=== PATIENT | male | born 1980 | race Caucasian/White ===

== ENCOUNTER 2016-06-23 16:58 | Emergency (ER) | payer OTHER ==
[2016-06-23 17:08] VITALS: BP 151/93
[2016-06-23] MEDS ORDERED: IBUPROFEN 800 MG TABLET PO ONE (17:12)
--- NOTE | 2016-06-23 17:12 | ER Document Report ---
ED Medical Screen (RME) - General Chief Complaint: Ankle Pain Stated Complaint: LEFT ANKLE AND KNEE PAIN Time seen by provider: 17:09 Mode of Arrival: Wheelchair Information source: Patient Notes: 36-year-old male getting out of his liner at 4:30 today. Twisted his ankle and left knee and fell onto his whole leg. He is complaining of lateral left knee pain ankle pain and foot pain. hurts to bear weight on it TRAVEL OUTSIDE OF THE [place] IN LAST 30 DAYS: No - Related Data Allergies/Adverse Reactions: Penicillins Allergy (Verified 05/23/16 13:41) Past Medical History Past Surgical History: Reports: Hx Oral Surgery - wisdom, Hx Orthopedic Surgery - both knee, Hx Tonsillectomy Physical Exam - Vital signs Vitals: Temp Pulse Resp BP Pulse Ox 98.1 F 89 16 151/93 H 92 06/23/16 17:06 06/23/16 17:06 06/23/16 17:06 06/23/16 17:06 06/23/16 17:06 Course - Vital Signs Vital signs: Temp Pulse Resp BP Pulse Ox 98.1 F 89 16 151/93 H 92 06/23/16 17:06 06/23/16 17:06 06/23/16 17:06 06/23/16 17:06 06/23/16 17:06
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
== END 2016-06-23 19:06 | disposition home or self-care (01) ==
LOC: ER 16:58
DX: S93.402A Sprain of unspecified ligament of left ankle, initial encounter (principal); M25.562 Pain in left knee; M79.672 Pain in left foot; W07.XXXA Fall from chair, initial encounter; Y92.009 Unspecified place in unspecified non-institutional (private) residence as the place of occurrence of the external cause; Z88.0 Allergy status to penicillin
CPT/HCPCS: 99283; 73610; 73630; 73562; L1902

== ENCOUNTER 2017-09-29 21:31 | Emergency (ER) | payer MEDICAID, OTHER ==
[2017-09-29 22:44] LABS: APPEARANCE,URINE CLOUDY; BILIRUBIN,URINE NEGATIVE (NEGATIVE); COLOR,URINE YELLOW; GLUCOSE, URINE NEGATIVE (NEGATIVE); KETONES,URINE NEGATIVE (NEGATIVE); LEUKOCYTE ESTERASE,URINE LARGE (NEGATIVE); NITRITE,URINE NEGATIVE (NEGATIVE); PROTEIN,URINE 100 mg/dL (NEGATIVE); URINE SPECIFIC GRAVITY 1.016
[2017-09-29] MEDS ORDERED: CEFTRIAXONE INJ 1000 MG VIAL IV ONE (23:21)
[2017-09-29] MEDS ORDERED: KETOROLAC TROMETHAMINE INJ/PF 30 MG/1 ML SDV IV ONE (23:21)
[2017-09-29] MEDS ORDERED: NORMAL SALINE 1000 ML 1,000 ML IV ONE (23:21)
[2017-09-29] MEDS ORDERED: ONDANSETRON HCL INJ/PF 4 MG/2 ML SDV IV ONE (23:21)
[2017-09-30 00:44] LABS: ABSOLUTE BASOPHILS # (AUTO) 0.1 10^3/uL (0.0-0.2); ABSOLUTE EOSINOPHILS # (AUTO) 0.1 10^3/uL (0.0-0.6); ABSOLUTE LYMPHOCYTES (AUTO) 1.6 10^3/uL (0.5-4.7); ABSOLUTE MONOCYTES (AUTO) 1.2 10^3/uL (0.1-1.4); ABSOLUTE NEUT (AUTO) 6.4 10^3/uL (1.7-8.2); BASOPHILS % (AUTO) 0.6 % (0-2); EOSINOPHILS % (AUTO) 0.9 % (0-6); HEMATOCRIT 41.3 % (37.9-51.0); HEMOGLOBIN 14.1 g/dL (13.5-17.0); LYMPHOCYTES % (AUTO) 16.8 % (13-45); MEAN CORPUSCULAR HEMOGLOBIN 27.7 pg (27.0-33.4); MEAN CORPUSCULAR HGB CONC 34.1 g/dL (32.0-36.0); MEAN CORPUSCULAR VOLUME 81 fl (80-97); MONOCYTES % (AUTO) 12.5 % (3-13); PLATELET COUNT 227 10^3/uL (150-450); RED BLOOD COUNT 5.08 10^6/uL (4.35-5.55); RED CELL DISTRIBUTION WIDTH 13.5 % (11.5-14.0); SEGMENTED NEUTROPHILS % (AUTO) 69.2 % (42-78); TOTAL CELLS COUNTED % (AUTO) 100 %; WHITE BLOOD COUNT 9.3 10^3/uL (4.0-10.5)
[2017-09-30 01:01] LABS: ALANINE AMINOTRANSFERASE 57 U/L (21-72); ALBUMIN 4.3 g/dL (3.5-5.0); ALKALINE PHOSPHATASE 105 U/L (38-126); ANION GAP 13 (5-19); ASPARTATE AMINO TRANSFERASE 27 U/L (17-59); BILIRUBIN,DIRECT 0.4 mg/dL (0.0-0.4); BILIRUBIN,TOTAL 0.4 mg/dL (0.2-1.3); BLOOD UREA NITROGEN 14 mg/dL (7-20); CALCIUM 9.2 mg/dL (8.4-10.2); CARBON DIOXIDE 26 mmol/L (22-30); CHLORIDE 104 mmol/L (98-107); GLUCOSE 149 mg/dL (75-110); POTASSIUM 4.1 mmol/L (3.6-5.0); SODIUM 143.4 mmol/L (137-145); TOTAL PROTEIN 7.4 g/dL (6.3-8.2)
[2017-09-30] MEDS ORDERED: ACETAMINOPHEN 325 MG TABLET PO ONE (01:04)
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
--- NOTE | 2017-09-30 01:23 | RADIOLOGY REPORT (SQ) ---
EXAM DESCRIPTION: CT ABDOMEN AND PELVIS WITHOUT CONTRAST CLINICAL HISTORY: Right and left lower abdominal pain. COMPARISON: None Available. TECHNIQUE: CT of the abdomen and pelvis without IV contrast. Evaluation of the solid organs and vasculature is suboptimal due to lack of IV contrast. DLP: 1546.61 mGy-cm FINDINGS: Lung Bases: The visualized lung bases are clear. Bones: No destructive bone lesions identified. Bilateral L5/S1 pars defects. Abdomen: Liver: The liver has normal size and decreased density. Gallbladder: No calcified gallstones. Spleen, Pancreas, and Adrenal Glands: The spleen, pancreas, and adrenal glands are unremarkable. Kidneys: No obstructing ureteral calculi. The kidneys have normal size without evidence of hydronephrosis. Vasculature: The aorta and IVC have normal caliber and position. Stomach: The stomach and duodenum have normal course. Other: No free intraperitoneal air. No free fluid or lymphadenopathy. Pelvis: Bladder: Urinary bladder is decompressed with mild adjacent inflammatory change. Bowel: No dilated loops of large or small bowel. Appendix: No evidence of appendicitis. The appendix is not definitely identified. Pelvis: Prostate is not enlarged. IMPRESSION: 1. Mild inflammatory change and wall thickening of the urinary bladder. This could be seen with cystitis. Other etiology not excluded. 2. No obstructing ureteral calculi identified. 3. Hepatic steatosis. This exam was performed according to our departmental dose-optimization program, which includes automated exposure control, adjustment of the mA and/or kV according to patient size and/or use of iterative reconstruction technique.
[2017-09-30] MEDS ORDERED: ONDANSETRON ODT 4 MG TAB (6 TAB/ER DISP) PO PRN (01:54)
[2017-09-30 02:32] VITALS: BP 126/76
== END 2017-09-30 02:31 | disposition home or self-care (01) ==
LOC: ER 21:31
DX: N12 Tubulo-interstitial nephritis, not specified as acute or chronic (principal); R50.9 Fever, unspecified; R11.2 Nausea with vomiting, unspecified; R10.9 Unspecified abdominal pain; R30.0 Dysuria; R10.30 Lower abdominal pain, unspecified; Z87.891 Personal history of nicotine dependence
CPT/HCPCS: 99284; 96361; 96374; 96375; 36415; 87086; 85025; 87088; 80053; 81001; 87186; 76380; J1885; J0696; J2405; J7030

== ENCOUNTER 2018-01-08 16:33 | Emergency (ER) | payer OTHER ==
[2018-01-08] MEDS ORDERED: NORMAL SALINE 1000 ML 1,000 ML IV PRN (17:06)
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
--- NOTE | 2018-01-08 17:32 | RADIOLOGY REPORT (SQ) ---
EXAM DESCRIPTION: ACUTE ABDOMEN SERIES COMPLETED DATE/TIME: 01/08/2018 5:23 pm REASON FOR STUDY: Acute abdominal pain COMPARISON: 09/30/2017 NUMBER OF VIEWS: Three views. TECHNIQUE: Frontal chest, supine abdomen and upright/decubitus abdomen radiographic images acquired. LIMITATIONS: None. FINDINGS: CHEST: No acute finding. Similar bibasilar subpleural scarring. FREE AIR: None. No abnormal gas collections. BOWEL GAS PATTERN: Nonobstructive pattern. No dilated loops or air fluid levels. CALCIFICATIONS: No suspicious calcifications. HARDWARE: None in the abdomen. SOFT TISSUES: No gross mass or suggestion of organomegaly. BONES: No acute fracture. No worrisome bone lesions. OTHER: No other significant finding. IMPRESSION: NO RADIOGRAPHIC EVIDENCE FOR ACUTE ABDOMINAL DISEASE. TECHNICAL DOCUMENTATION: JOB ID: [id number] [place]-72 2010 [employer]- All Rights Reserved Reading location - IP/workstation name: [email or web address]
[2018-01-08 18:25] LABS: ABSOLUTE EOSINOPHILS # (AUTO) 0.2 10^3/uL (0.0-0.6); ABSOLUTE LYMPHOCYTES (AUTO) 2.4 10^3/uL (0.5-4.7); ABSOLUTE MONOCYTES (AUTO) 0.7 10^3/uL (0.1-1.4); ABSOLUTE NEUT (AUTO) 4.4 10^3/uL (1.7-8.2); BASOPHILS % (AUTO) 0.6 % (0-2); EOSINOPHILS % (AUTO) 2.4 % (0-6); HEMATOCRIT 41.3 % (37.9-51.0); HEMOGLOBIN 14.5 g/dL (13.5-17.0); LYMPHOCYTES % (AUTO) 30.6 % (13-45); MEAN CORPUSCULAR HEMOGLOBIN 28.3 pg (27.0-33.4); MEAN CORPUSCULAR HGB CONC 35.2 g/dL (32.0-36.0); MEAN CORPUSCULAR VOLUME 80 fl (80-97); MONOCYTES % (AUTO) 9.4 % (3-13); PLATELET COUNT 271 10^3/uL (150-450); RED BLOOD COUNT 5.13 10^6/uL (4.35-5.55); TOTAL CELLS COUNTED % (AUTO) 100 %; WHITE BLOOD COUNT 7.7 10^3/uL (4.0-10.5)
[2018-01-08 18:32] LABS: APPEARANCE,URINE CLEAR; BILIRUBIN,URINE NEGATIVE (NEGATIVE); COLOR,URINE YELLOW; GLUCOSE, URINE NEGATIVE (NEGATIVE); KETONES,URINE NEGATIVE (NEGATIVE); LEUKOCYTE ESTERASE,URINE NEGATIVE (NEGATIVE); NITRITE,URINE NEGATIVE (NEGATIVE); PROTEIN,URINE NEGATIVE (NEGATIVE)
[2018-01-08 18:56] LABS: ALANINE AMINOTRANSFERASE 85 U/L (21-72); ALBUMIN 4.5 g/dL (3.5-5.0); ALKALINE PHOSPHATASE 71 U/L (38-126); ANION GAP 11 (5-19); ASPARTATE AMINO TRANSFERASE 53 U/L (17-59); BILIRUBIN,DIRECT 0.2 mg/dL (0.0-0.4); BILIRUBIN,TOTAL 0.5 mg/dL (0.2-1.3); BLOOD UREA NITROGEN 13 mg/dL (7-20); CALCIUM 9.4 mg/dL (8.4-10.2); CARBON DIOXIDE 28 mmol/L (22-30); CHLORIDE 103 mmol/L (98-107); GLUCOSE 93 mg/dL (75-110); LIPASE 46.6 U/L (23-300); POTASSIUM 4.3 mmol/L (3.6-5.0); SODIUM 142.2 mmol/L (137-145); TOTAL PROTEIN 7.4 g/dL (6.3-8.2)
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
--- NOTE | 2018-01-08 23:21 | RADIOLOGY REPORT (SQ) ---
EXAM DESCRIPTION: CT ABDOMEN PELVIS WITH IV CONTRAST COMPLETED DATE/TME: 01/08/2018 00:00 CLINICAL HISTORY: Lower abdominal pain. COMPARISON: 09/30/2017 TECHNIQUE: CT of the abdomen and pelvis performed following IV administration of 100 mL of Isovue-370. DLP: 2388.17 mGycm FINDINGS: Lung Bases: Tiny right pleural effusion. Bones: No destructive bone lesions identified. Bilateral L5/S1 pars defects. Abdomen: Liver: The liver has normal size and decreased density. No intrahepatic mass or biliary dilatation. Gallbladder: No calcified gallstones. Spleen, Pancreas, and Adrenal Glands: The spleen, pancreas, and adrenal glands are unremarkable. Kidneys: The kidneys have normal size and contour without evidence of solid mass or hydronephrosis. Vasculature: The aorta and IVC have normal caliber and position. The portal vein is patent. The proximal visceral and renal arteries are patent. Stomach: The stomach and duodenum have normal course. Other: No free intraperitoneal air. No free fluid or lymphadenopathy. Pelvis: Bladder: Urinary bladder is unremarkable. Bowel: No dilated loops of large or small bowel. Appendix: Normal appendix. Pelvis: Prostate is not enlarged. IMPRESSION: 1. No acute inflammatory or obstructive process identified. 2. Hepatic steatosis. This exam was performed according to our departmental dose-optimization program, which includes automated exposure control, adjustment of the mA and/or kV according to patient size and/or use of iterative reconstruction technique.
[2018-01-08] MEDS ORDERED: DICYCLOMINE HCL 20 MG TABLET PO ONE (23:41)
[2018-01-09 00:12] VITALS: BP 135/89
== END 2018-01-09 00:12 | disposition home or self-care (01) ==
LOC: ER 16:33
DX: R10.9 Unspecified abdominal pain (principal); R10.817 Generalized abdominal tenderness; R14.0 Abdominal distension (gaseous); K64.8 Other hemorrhoids; Z88.0 Allergy status to penicillin
CPT/HCPCS: 99284; 36415; 83690; 85025; 82272; 80076; 80048; 81001; 74022; 74177; J3490